=== PATIENT | female | born 1985 | race Caucasian/White ===

== ENCOUNTER 2022-02-12 08:01 | Outpatient (CLI) | payer BC, SELFPAY ==
--- OUTSIDE RECORDS SUMMARY | 2022-02-12 08:04 | XMS_ITS | Clinical Summary ---
:1985 External Reference #:#[id number] Author Organization [facility] [place] [address] Care Team Providers Name Role Phone Pcp, No Primary Care Provider Unavailable Allergies Active Allergy Reactions Severity Noted Date Comments Amoxicillin 12/26/2006 Cefaclor 12/26/2006 Escitalopram Anxiety 01/27/2010 Sulfa (Sulfonamide Antibiotics) 7 Medications Medication Sig Dispensed Refills Start Date End Date Status norgestimate-ethinyl Take 1 tablet by 1 Package 0 01/27/2010 Active estradiol mouth once daily. (TRI-SPRINTEC) 0.18/0.215/0.25 mg-35 mcg (28) tablet Biotin 10,000 mcg Take 1 capsule by 0 07/15/2011 Active capsuleIndications: mouth. Anxiety state, unspecified levonorgestrel-ethinyl Take 1 tablet by 1 Package 0 09/25/2012 Active estrad, 0.15-30 mouth once daily. mg-mcg, (ALTAVERA, 28,) 0.15-30 mg-mcg tablet busPIRone (BUSPAR) 10 Take 1 tablet by 30 tablet 11 09/25/2012 Active mg tabletIndications: mouth 3 times Anxiety state, daily if needed unspecified for Other (Specify). buPROPion (WELLBUTRIN Take 1 tablet by 0 09/25/2012 Active SR) 150 mg mouth 2 times Sustained-Release daily. Managed by tablet Dr Diaz Active Problems Problem Noted Date Anxiety state, unspecified 07/20/2011 Other specified viral warts 09/30/2010 Overview: Right index finger and right foot. 2010 Reaction, adjustment, with anxious, depressed mood Unspecified gastritis and gastroduodenitis without men tion of hemorrhage 07/08/2008 Overview: EGD 07/2008 gastritis Insomnia, unspecified 04/12/2007 Resolved Problems Problem Noted Date Resolved Date Intestinal infection due to Clostridium difficile 08/29/2008 07/15/2011 Immunizations Name Administration Dates Next Due AMB Influenza, IIV3 (Age >=3 02/24/2011 years)(Flu Clinic Only) DTP 03/31/1990, 09/17/1988, 03/25/1988, 1987 DTaP 01/05/1993 Hepatitis B (Adult) 11/05/2009, 03/05/2009, 12/12/2008 Human Papilloma Virus Vaccine 03/01/2012, 09/13/2011, 2011 Influenza,LAIV4 Live Intranasal 02/24/2010, 03/05/2009, 07/2008 (Flumist) MMR 08/25/1999, 03/31/1990 Oral Polio Vaccine 01/05/1993, 03/31/1990, 03/25/1988, 1987 Td (Age >=7 Years) 08/25/1999 Tdap 10/18/2008 Tuberculin (PPD) 11/05/2009, 12/27/2008, 12/12/2008, 10/18/2008 Family History Medical History Relation Name Comments Diabetes Father type I Diabetes Maternal Grandfather type 11 Diabetes Maternal Grandmother type 11 Cancer-breast Mother Psychiatric illness Mother depression Diabetes Paternal Grandfather type 1 Relation Name Status Comments Father (Age 40) killed in the line of duty Maternal Grandfather Maternal Grandmother Mother Paternal Grandfather Social History Tobacco Use Types Packs/Day Years Used Date Never Smoker Smokeless Tobacco: Never Used Tobacco Cessation: Counseling Given: Yes Alcohol Use Standard Drinks/Week Comments Yes 0 (1 standard drink = 0.6 oz pure alcoho l) occasionally Alcohol Habits Answer Date Recorded How often do you have a drink containing alcohol? Not asked How many drinks containing alcohol do you have on a Not aske d typical day when you are drinking? How often do you have six or more drinks on one occasion? No t asked Comment: occasionally 10/18/2008 Sex Assigned at Date Recorded Not on file Obstetrics History Last Filed Vital Signs Vital Sign Reading Time Taken Comments Blood Pressure 115/79 09/25/2012 4:46 PM CDT tower Pulse 79 09/25/2012 4:46 PM CDT Temperature 36.9 ??C (98.4 ??F) 09/25/2012 4:46 PM CDT Respiratory Rate - - Oxygen Saturation 100% 09/25/2012 4:46 PM CDT Inhaled Oxygen Concentration - - Weight 66.9 kg (147 lb 6.4 oz) 09/25/2012 4:46 PM CDT Height 167.6 cm (5' 6) 01/27/2010 9:05 AM CDT Body Mass Index 23.79 01/27/2010 9:05 AM CDT Plan of Treatment Health Maintenance Due Date Last Done Comments COVID-19 vaccine series (#1) 03/20/1988 Depression screening for age 12+ 1999 BMI (ht and wt on same day) for 09/17/2005 age 18+ Tetanus booster 10/18/2018 10/18/2008, 08/25/1999 Pap test for age 21-65 10/18/2020 10/18/2017, 10/18/2017, 06/19/2014, Additional history exists Influenza for age 9-49 01/07/2022 02/24/2011, 02/24/2010, 03/05/2009, Additional history exists Tdap Completed 10/18/2008 Hepatitis C screening for age Completed 02/24/2011, 2010 18-79 Results Not on filefrom Last 3 Months Insurance Payer Benefit Plan Subscriber ID Effective Dates Phone Address Type / Group [employer] [id number] 2010-Prese [phone] [address] [address] [address] [place] [id number] (Home) [place] [id number] [address] Personal/Family Self 1985 [address] (Home) [place] [address] [facility] [id number] [employer] ([place]) [place] [address] Care Teams Food And Nutrition Professor Relationship Specialty Start Date End Date Pcp, No PCP - General 06/07/13 .
--- OUTSIDE RECORDS SUMMARY | 2022-02-12 08:04 | XMS_ITS | Encounter Summary ---
:1985 Author Organization [facility] Address [address] [place] [address] Care Team Providers Name Role Phone No Ref-Primary, Physician Primary Care Provider [phone] Encounter Details Date Type Department Care Team Description 03/30/2019 Travel Social History Tobacco Use Types Packs/Day Years Used Date Never Assessed Sex Assigned at Date Recorded Not on file documented as of this encounter Plan of Treatment Not on filedocumented as of this encounter Visit Diagnoses Not on filedocumented in this encounter Care Teams Brewery Representative Relationship Specialty Start Date End Date No Ref-Primary, Physician PCP - General 03/30/19 documented as of this encounter
--- OUTSIDE RECORDS SUMMARY | 2022-02-12 08:04 | XMS_ITS | Encounter Summary ---
:1985 Author Organization [facility] Address [address] [place] [address] Care Team Providers Name Role Phone No Ref-Primary, Physician Primary Care Provider [phone] Reason for Visit Reason Comments New Patient Thyroid Problem Encounter Details Date Type Department Care Team Description [facility] [place] Dorina Anti-TPO antibodies present [address] [place] [id number] [phone] Social History Tobacco Use Types Packs/Day Years Used Date Never Smoker Smokeless Tobacco: Never Used Alcohol Use Standard Drinks/Week Comments Yes 0 (1 standard drink = 0.6 oz pure alcoho l) Sex Assigned at Date Recorded Not on file documented as of this encounter Last Filed Vital Signs Vital Sign Reading Time Taken Comments Blood Pressure 106/72 06/21/2019 2:58 PM FINISHING WIRE SAWYER Pulse 74 06/21/2019 2:58 PM FINISHING WIRE SAWYER Temperature 36.4 ??C (97.6 ??F) 06/21/2019 2:58 PM FINISHING WIRE SAWYER Respiratory Rate 16 06/21/2019 2:58 PM FINISHING WIRE SAWYER Oxygen Saturation 100% 06/21/2019 2:58 PM FINISHING WIRE SAWYER Inhaled Oxygen Concentration - - Weight 90.9 kg (200 lb 6.4 oz) 06/21/2019 2:58 PM FINISHING WIRE SAWYER Height 165.1 cm (5' 5) 06/21/2019 2:58 PM FINISHING WIRE SAWYER Body Mass Index 33.35 06/21/2019 2:58 PM FINISHING WIRE SAWYER documented in this encounter Patient Instructions Patient InstructionsDorina Moy MD - 06/21/2019 3:00 PM CST [facility] Dr Moy, Endocrinology Department [facility] [address] [facility] [address] Appointment [phone] Tuesday and Tuesday [facility] [place] [address] Appointment [phone] Tuesday and Labs today. Further work up based on that. SHING WIRE SAWYER documented in this encounter Progress Notes Dorina Moy MD - 06/21/2019 3:00 PM CST ENDOCRINOLOGY CLINIC NOTE: Name: Yvrose Padilla Self referral for thyroid concerns. HPI: Yvrose Padilla is a 33 year old female who presents for the evaluation of above. PCP is through [facility]. H/o anxiety and is on Cymbalta. Had thyroid issues since age 20. Had +TPO antibodies positive but TFT were normal so was not on medication. She reports that for a while her TSH was on the lower side and she was feeling really good Follow-up labs showed higher TSH and at that time she was feeling tired and fatigued. For last 3 months: Acute on chronic fatigue, tiredness and sleepiness. Also has brittle nails, dry skin and hair loss. H/o fluctuating thyroid labs. Not feeling the best. Feels like fingers are swelling. Palpitations: Not often Changes to hair or skin: Yes: + hair loss Diarrhea/Constipation:h/o constipation and takes probiotics Changes in menses: on IUD. Has 2 kids. No thyroid problems during . Dysphagia or Shortness of breath:No. Sometimes neck is tender. Tremors:No Heat or cold intolerance: + cold intolerance. History of Cloverleaf or Amiodarone use:No Head or neck surgery/radiation:No Family History of Thyroid Problems: sister, mother and m.aunt: hypothyroidism. PMH/PSH: Anxiety IUD S/p S/p cholecystectomy. Family Hx: Family History of Thyroid Problems: sister, mother and m.aunt: hypothyroidism. Social Hx: Social History Socioeconomic History ??? Marital status: Spouse name: Not on file ??? Number of children: Not on file ??? Years of education: Not on file ??? Highest education level: Not on file Occupational History ??? Not on file Social Needs ??? Financial resource strain: Not on file ??? Food insecurity: Worry: Not on file Inability: Not on file ??? Transportation needs: Medical: Not on file Non-medical: Not on file Tobacco Use ??? Smoking status: Never Smoker ??? Smokeless tobacco: Never Used Substance and Sexual Activity ??? Alcohol use: Yes ??? Drug use: Never ??? Sexual activity: Yes Partners: Male Lifestyle ??? Physical activity: Days per week: Not on file Minutes per session: Not on file ??? Stress: Not on file Relationships ??? Social connections: Talks on phone: Not on file Gets together: Not on file Attends scientology service: Not on file Active member of club or organization: Not on file Attends meetings of clubs or organizations: Not on file Relationship status: Not on file ??? Intimate partner violence: Fear of current or ex partner: Not on file Emotionally abused: Not on file Physically abused: Not on file Forced sexual activity: Not on file Other Topics Concern ??? Not on file Social History Narrative ??? Not on file MEDICATIONS: has a current medication list which includes the following prescription(s): duloxetine. ROS ROS: 10 point ROS neg other than the symptoms noted above in the HPI. Physical Exam VS: BP 106/72 (BP Location: Left arm, Patient Position: Chair, Cuff Size: Adult Large) Pulse 74 Temp 97.6 ??F (36.4 ??C) (Oral) Resp 16 Ht 1.651 m (5' 5) Wt 90.9 kg (200 lb 6.4 oz) LMP (LMP Unknown) SpO2 100% No BMI 33.35 kg/m?? GENERAL: AXOX3, NAD, well dressed, answering questions appropriately, appears stated age. HEENT: No exopthalmous, no proptosis, EOMI, no lig lag, no retraction NECK: Thyroid normal in size, non tender, no nodules were palpated. CV: RRR, no rubs, gallops, no murmurs LUNGS: CTAB, no wheezes, rales, or ronchi ABDOMEN: Regular bowel sounds eXTREMITIES: no edema, +pulses, no rashes, no lesions NEUROLOGY: CN grossly intact, no tremors MSK: grossly intact SKIN: no rashes, no lesions LABS: No recent data to review. Records from outside clinic requested. All pertinent notes, labs, and images personally reviewed by me. A/P Ms.Jillian Padilla is a 33 year old here for the evaluation of hypothyroidism: #1.Thyroid dysfunction: Strong family history of Roger and hypothyroidism Per her report she was diagnosed with Roger in past but was never started on medication as TFT were in normal range Clinically looks euthyroid Not planning at this time Has symptoms like chronic fatigue, dry nails has no reported above Plan: Discussed diagnosis, pathophysiology, management and treatment options of condition with pt. Repeat thyroid function test. We will also obtain vitamin D and hemoglobin levels for further evaluation of fatigue. Screen for Roger. Based on labs consider thyroid hormone replacement. Encouraged to continue work with psychiatrist and her primary care provider for further management of anxiety. Discussed s/s of hypothyroidism and hyperthyroidism to watch for. The patient indicates understanding of these issues and agrees with the plan. Standard treatment for hypothyroidism involves daily use of the synthetic thyroid hormone levothyroxine (Levothroid, Synthroid, others). The dosage of thyroxine should normally be that required to bring the serum TSH level to the low normal range, such as 0.3 - 1 uU/ml. This is typically achieved with1 ug L- T4/lb body weight/day, ranges from 75 - 125 ug/day in women, and 125 - 200 ug/day in men. Once thyroxine treatment is initiated, it is required indefinitely in most patients. Symptoms should improve one to two weeks after starting treatment. Treatment with levothyroxine is usually lifelong. Doseage may need to be adjusted based on body weight, medications, or . To determine the right dosage of levothyroxine initially we will repeat TSH and free T4 after two months. Excessive amounts of the hormone can cause side effects, such as: Increased appetite, insomnia, heart palpitations, and shakiness. Patients with CAD will be started on a lower dose. Levothyroxine causes virtually no side effects when used in the appropriate dose. In patients with childbearing age precaution should be taking regarding hypothyroidism. Hypothyroid woman are more likely to experience infertility, and they have an increase. Balance and portion, anemia, and gestational hypertension, placental abruption and hemorrhage. Certain medications, supplements and foods can affect the body???s ability to absorb levothyroxine. Medications include: Iron supplements, Cholestyramine and Calcium supplements. Follow-up: Based on labs. Dorina Moy MD Endocrinology [facility] CC: No Ref-Primary, Physician All questions were answered. The patient indicates understanding of the above issues and agrees withthe plan set forth. Addendum to above note and clinic visit: Labs reviewed. See result note/telephone encounter. SHING WIRE SAWYER documented in this encounter Plan of Treatment Not on filedocumented as of this encounter Procedures Procedure Name Priority Date/Time Associated Diagnosis Comme nts VITAMIN D DEFICIENCY Routine 06/21/2019 3:23 PM Fatigue, unspe cified Results for this SCREENING FINISHING WIRE SAWYER type procedure are i n the results section. TSH Routine 06/21/2019 3:23 PM Anti-TPO antibodies Re sults for this FINISHING WIRE SAWYER present procedure are i n the results section. THYROID PEROXIDASE Routine 06/21/2019 3:23 PM Anti-TPO antibod ies Results for this ANTIBODY FINISHING WIRE SAWYER present procedure are i n the results section. T4 FREE Routine 06/21/2019 3:23 PM Anti-TPO antibodies Re sults for this FINISHING WIRE SAWYER present procedure are i n the results section. HEMOGLOBIN Routine 06/21/2019 3:23 PM Fatigue, unspecified R esults for this FINISHING WIRE SAWYER type procedure are i n the results section. documented in this encounter Results Hemoglobin (06/21/2019 3:23 PM FINISHING WIRE SAWYER) athologist Signature Hemoglobin 13.4 11.7 - 15.7 06/21/2019 REMUS g/dL 3:45 PM FINISHING WIRE SAWYER [facility] Specimen Anatomical Collection Method Collection Time Receive d Time (Source) Location / / Volume Laterality Blood specimen 06/21/2019 3:23 PM 020 3:28 (specimen) FINISHING WIRE SAWYER PM FINISHING WIRE SAWYER Dorina Moy MD LAB - BLOOD ORDERABLES Performing Organization Address City/State/ZIP Code Phon e Number [facility] [address] [place], [place] [address] [address] Vitamin D Deficiency (06/21/2019 3:23 PM FINISHING WIRE SAWYER) athologist Signature Vitamin D 27 20 - 75 06/24/2019 [facility] Deficiency ug/L 10:17 AM FINISHING WIRE SAWYER [place] [facility] Comment: Season, race, dietary intake, and treatm ent affect the concentration of 42-tralswa-Ffrseml D. Values may decreas e during winter months and increase during summer months. Values 20-29 ug/L may indicate Vitamin D insufficiency and values <20 ug/L may indicate Vitamin D deficiency. Vitamin D determination is routinely per formed by an immunoassay specific for 25 hydroxyvitamin D3. ??If an individual is on vitamin D2 (ergocalciferol) supplementation, please specify 25 [place] vi tamin D2 and D3 level determination by LCMSMS test VITD23. Specimen Anatomical Collection Method Collection Time Receive d Time (Source) Location / / Volume Laterality Blood specimen 06/21/2019 3:23 PM 020 3:28 (specimen) FINISHING WIRE SAWYER PM FINISHING WIRE SAWYER Dorina Moy MD LAB - BLOOD ORDERABLES Performing Organization Address City/State/ZIP Code Phon e Number [address] Thyroid peroxidase antibody (06/21/2019 3:23 PM FINISHING WIRE SAWYER) athologist Signature Thyroid 29 <35 IU/mL 06/25/2019 [facility] Peroxidase 2:28 PM FINISHING WIRE SAWYER [facility] Specimen Anatomical Collection Method Collection Time Receive d Time (Source) Location / / Volume Laterality Blood specimen 06/21/2019 3:23 PM 020 3:28 (specimen) FINISHING WIRE SAWYER PM FINISHING WIRE SAWYER Dorina Moy MD LAB - BLOOD ORDERABLES Performing Organization Address City/State/ZIP Code Phon e Number [address] T4 free (06/21/2019 3:23 PM FINISHING WIRE SAWYER) athologist Signature T4 Free 0.89 0.76 - 1.46 06/22/2019 [facility] ng/dL 1:02 PM FINISHING WIRE SAWYER [facility] Specimen Anatomical Collection Method Collection Time Receive d Time (Source) Location / / Volume Laterality Blood specimen 06/21/2019 3:23 PM 020 3:28 (specimen) FINISHING WIRE SAWYER PM FINISHING WIRE SAWYER Dorina Moy MD LAB - BLOOD ORDERABLES Performing Organization Address City/[facility]/ZIP Code Phon e Number [facility] [address], [place] [address] TSH (06/21/2019 3:23 PM FINISHING WIRE SAWYER) P athologist Signature TSH 2.66 0.40 - 4.00 06/22/2019 [facility] mU/L 1:08 PM FINISHING WIRE SAWYER [facility] Specimen Anatomical Collection Method Collection Time Receive d Time (Source) Location / / Volume Laterality Blood specimen 06/21/2019 3:23 PM 020 3:28 (specimen) FINISHING WIRE SAWYER PM FINISHING WIRE SAWYER Dorina Moy MD LAB - BLOOD ORDERABLES Performing Organization Address City/[facility]/ZIP Code Phon e Number [facility] [address] [place] [address] documented in this encounter Visit Diagnoses Diagnosis Fatigue, unspecified type - Primary Anti-TPO antibodies present Other and unspecified nonspecific immuno logical findings documented in this encounter Care Teams Quantitative Strategy Analyst Relationship Specialty Start Date End Date No Ref-Primary, Physician PCP - General 03/30/19 documented as of this encounter
--- OUTSIDE RECORDS SUMMARY | 2022-02-12 08:04 | XMS_ITS | Encounter Summary ---
:1985 Author Organization [facility] Address [address] [place] [address] Care Team Providers Name Role Phone No Ref-Primary, Physician Primary Care Provider [phone] Encounter Details Date Type Department Care Team Description 06/21/2019 Travel Social History Tobacco Use Types Packs/Day [...] on filedocumented in this encounter Care Teams Eyedotter Relationship Specialty Start Date End Date No Ref-Primary, Physician PCP - General 03/30/19 documented as of this encounter
--- NOTE | 2022-02-12 08:15 | CRLHL7_ITS ---
For Patients: As a result of the Cures Act, medical imaging exams and procedure reports are released immediately into your electronic medical record. You may view this report before your referring provider. If you have questions, please contact your health care provider. INDICATION: First trimester scan, establish dates. TECHNIQUE: Real-time forrester-scale imaging of the pelvis was performed. FINDINGS: Sonographic imaging demonstrates a single living intrauterine gestation. The embryo demonstrates a regular cardiac rate measuring 163 beats per minute. The embryo`s crown-rump length measurement of 1.4 cm corresponds to a gestational age of 7 weeks 5 days with a sonographic due date of 09/26/2021. There is a normal-appearing yolk sac ovaries are unremarkable. IMPRESSION: Normal first trimester OB ultrasound exam. Gestational age calculated at 7 weeks 5 days with a sonographic due date of 09/26/2021. Dictated by Aimee Cisneros MD @ 02/12/2022 9:16:56 AM (Electronically Signed)
== END 2022-02-12 08:02 | disposition home or self-care (01) ==
LOC: US 08:02
PROVIDERS: PCP Family Medicine; Visit Provider Registered Nurse
DX: Z34.91 Encounter for supervision of normal pregnancy, unspecified, first trimester (principal); Z3A.01 Less than 8 weeks gestation of pregnancy
CPT/HCPCS: 76817; 82565; 82570; 84156; 84443; 84450; 84460; 84520; 86592; 86703; 86762; 86787; 86803; 86850; 86900; 86901; 87086; 87340; 87491; 87591

== ENCOUNTER 2022-04-21 11:04 | Outpatient (CLI) | payer BC, SELFPAY ==
--- OUTSIDE RECORDS SUMMARY | 2022-04-21 07:44 | XMS_ITS | Clinical Summary ---
:1985 Author Organization [facility] Address [address] [place] [address] Care Team Providers Name Role Phone No Ref-Primary, Physician Primary Care Provider [phone] Allergies Active Allergy Reactions Severity Noted Date Comments Amoxicillin 12/26/2006 Cefaclor 12/26/2006 Sulfa Drugs 12/26/2006 Medications Medication Sig Dispensed Refills Start Date End Date Status DULoxetine (CYMBALTA) 20 MG capsule 0 05/10 Active Active Problems Problem Noted Date Fatigue, unspecified type 06/21/2019 Anti-TPO antibodies present 06/21/2019 Immunizations Name Administration Dates Next Due Influenza (intradermal) 02/20/2017 TDAP Vaccine (Adacel) 06/25/2016 Social History Tobacco Use Types Packs/Day Years Used Date Smoking Tobacco: Never Smokeless Tobacco: Never Alcohol Use Standard Drinks/Week Comments Yes 0 (1 standard drink = 0.6 oz pure alcoho l) Sex Assigned at Date Recorded Not on file Last Filed Vital Signs Vital Sign Reading Time Taken Comments Blood Pressure 106/72 06/21/2019 2:58 PM CASH ACCOUNTANT Pulse 74 06/21/2019 2:58 PM CASH ACCOUNTANT Temperature 36.4 ??C (97.6 ??F) 06/21/2019 2:58 PM CASH ACCOUNTANT Respiratory Rate 16 06/21/2019 2:58 PM CASH ACCOUNTANT Oxygen Saturation 100% 06/21/2019 2:58 PM CASH ACCOUNTANT Inhaled Oxygen Concentration - - Weight 90.9 kg (200 lb 6.4 oz) 06/21/2019 2:58 PM CASH ACCOUNTANT Height 165.1 cm (5' 5) 06/21/2019 2:58 PM CASH ACCOUNTANT Body Mass Index 33.35 06/21/2019 2:58 PM CASH ACCOUNTANT Plan of Treatment Health Maintenance Due Date Last Done Comments ADVANCE CARE PLANNING 1985 ANNUAL REVIEW OF HM ORDERS 1985 YEARLY PREVENTIVE VISIT 1985 COVID-19 Vaccine (#1) 03/20/1988 HIV SCREENING 09/17/2002 HEPATITIS C SCREENING 09/17/2005 PHQ-2 (once per calendar 05/09/2021 year) INFLUENZA VACCINE (#1) 2022 02/20/2017, 02/24/2011, 02/24/2010, Additional history exists HPV TEST 10/18/2022 10/18/2017 PAP 10/18/2022 10/18/2017 DTAP/TDAP/TD IMMUNIZATION 06/25/2026 06/25/2016, 01/05/1993 (3 - Td or Tdap) HEPATITIS B IMMUNIZATION Completed 11/05/2009, 03/05/2009, 12/12/2008 IPV IMMUNIZATION Aged Out No longer eligi ble based on patient 's age to complete this topic MENINGITIS IMMUNIZATION Aged Out No longe r eligible based on patient 's age to complete this topic Pneumococcal Vaccine: Aged Out No longer eligible Pediatrics (0 to 5 Years) based on patient's age and At-Risk Patients (6 to to co mplete this topic 64 Years) Insurance Payer Benefit Plan / Subscriber ID Effective Dates Phone Addre ss Type Group [place] [id number] 2016-Catia [phone] [address] [address] Indemnity t 0 [place] [address] Care Teams Operations Inspector Relationship Specialty Start Date End Date No Ref-Primary, Physician PCP - General 03/30/19
--- OUTSIDE RECORDS SUMMARY | 2022-04-21 07:44 | XMS_ITS | Encounter Summary ---
:1985 Author Organization [facility] Address [address] [place] [address] Care Team Providers Name Role Phone No Ref-Primary, Physician Primary Care Provider [phone] Reason for Visit Reason Comments New Patient Thyroid Problem Encounter Details Date Type Department Care Team Description 06[facility]21[facility]2019 [facility] Clinic Bronxsara Cam MD Anti-TPO antibodies present [address] [facility] [address] [place] [phone] Social History Tobacco Use Types Packs/Day Years Used Date Smoking Tobacco: Never Smokeless Tobacco: Never Alcohol Use Standard Drinks/Week Comments Yes 0 (1 standard drink = 0.6 oz pure alcoho l) Sex Assigned at Date Recorded Not on file documented as of this encounter Last Filed Vital Signs Vital Sign Reading Time Taken Comments Blood Pressure 106/72 06/21/2019 2:58 PM SHELL WORKER Pulse 74 06/21/2019 2:58 PM SHELL WORKER Temperature 36.4 ??C (97.6 ??F) 06/21/2019 2:58 PM SHELL WORKER Respiratory Rate 16 06/21/2019 2:58 PM SHELL WORKER Oxygen Saturation 100% 06/21/2019 2:58 PM SHELL WORKER Inhaled Oxygen Concentration - - Weight 90.9 kg (200 lb 6.4 oz) 06/21/2019 2:58 PM SHELL WORKER Height 165.1 cm (5' 5) 06/21/2019 2:58 PM SHELL WORKER Body Mass Index 33.35 06/21/2019 2:58 PM SHELL WORKER documented in this encounter Patient Instructions Patient InstructionsDorina Moy MD - 06/21/2019 3:00 PM CST [facility] [address] Moy, Endocrinology Department [facility] [address] [facility] [address] Appointment [phone] Tuesday and Tuesday [place] [address] [address] [facility] [place] [address] Appointment [phone] Tuesday and Labs today. Further work up based on that. L WORKER documented in this encounter Progress Notes Dorina Moy MD - 06/21/2019 3:00 PM CST ENDOCRINOLOGY CLINIC NOTE: Name: Yvrose Padilla Self referral for thyroid concerns. HPI: Yvrose Padilla is a 33 year old female who presents for the evaluation of above. PCP is through [facility]. H/o anxiety and is on Cymbalta. Had [...] cold intolerance: + cold intolerance. History of [place] or Amiodarone use:No Head or neck surgery/radiation:No [...] file Gets together: Not on file Attends methodist service: Not on file Active member of [...] Based on labs. Dorina Moy MD Endocrinology [facility] CC: No Ref-Primary, Physician All questions were answered. The patient indicates understanding of the above issues and agrees withthe plan set forth. Addendum to above note and clinic visit: Labs reviewed. See result note/telephone encounter. L WORKER documented in this encounter Plan of Treatment Not on filedocumented as of this encounter Procedures Procedure Name Priority Date/Time Associated Diagnosis Comme nts VITAMIN D DEFICIENCY Routine 06/21/2019 3:23 PM Fatigue, unspe cified Results for this SCREENING SHELL WORKER type procedure are i n the results section. TSH Routine 06/21/2019 3:23 PM Anti-TPO antibodies Re sults for this SHELL WORKER present procedure are i n the results section. THYROID PEROXIDASE Routine 06/21/2019 3:23 PM Anti-TPO antibod ies Results for this ANTIBODY SHELL WORKER present procedure are i n the results section. T4 FREE Routine 06/21/2019 3:23 PM Anti-TPO antibodies Re sults for this SHELL WORKER present procedure are i n the results section. HEMOGLOBIN Routine 06/21/2019 3:23 PM Fatigue, unspecified R esults for this SHELL WORKER type procedure are i n the results section. documented in this encounter Results Hemoglobin (06/21/2019 3:23 PM SHELL WORKER) P athologist Signature Hemoglobin 13.4 11.7 - 15.7 06/21/2019 [place] g/dL 3:45 PM SHELL WORKER [facility] Specimen Anatomical Collection Method Collection Time Receive d Time (Source) Location / / Volume Laterality Blood specimen 06/21/2019 3:23 PM 020 3:28 (specimen) SHELL WORKER PM SHELL WORKER Dorina Moy MD LAB - BLOOD ORDERABLES Performing Organization Address City/State/ZIP Code Phon e Number [facility] [address] [place], [place] [address] [address] Vitamin D Deficiency (06/21/2019 3:23 PM SHELL WORKER) athologist Signature Vitamin D 27 20 - 75 06/24/2019 [facility] Deficiency ug/L 10:17 AM SHELL WORKER IN MEDICAL [facility] Comment: Season, race, dietary intake, and treatm ent affect the concentration of 90-cjpjzlo-Zyegkmn D. Values may decreas e during winter [...] specimen 06/21/2019 3:23 PM 020 3:28 (specimen) SHELL WORKER PM SHELL WORKER Dorina Moy MD LAB - BLOOD ORDERABLES Performing Organization Address City/[facility]/ZIP Code Phon e Number [address] Thyroid peroxidase antibody (06/21/2019 3:23 PM SHELL WORKER) athologist Signature Thyroid 29 <35 IU/mL 06/25/2019 [facility] Peroxidase 2:28 PM SHELL WORKER [facility] Antibody [facility] Specimen Anatomical Collection Method Collection Time Receive d Time (Source) Location / / Volume Laterality Blood specimen 06/21/2019 3:23 PM 020 3:28 (specimen) SHELL WORKER PM SHELL WORKER Dorina Moy MD LAB - BLOOD ORDERABLES Performing Organization Address City/State/ZIP Code Phon e Number [address] T4 free (06/21/2019 3:23 PM SHELL WORKER) athologist Signature T4 Free 0.89 0.76 - 1.46 06/22/2019 [facility] ng/dL 1:[address] [facility] Specimen Anatomical Collection Method Collection Time Receive d Time (Source) Location / / Volume Laterality Blood specimen 06/21/2019 3:23 PM 020 3:28 (specimen) SHELL WORKER PM SHELL WORKER Dorina Moy MD LAB - BLOOD ORDERABLES Performing Organization Address City/[facility]/ZIP Code Phon e Number [facility] [address] [place] [address] TSH (06/21/2019 3:23 PM SHELL WORKER) P athologist Signature TSH 2.66 0.40 - 4.00 06/22/2019 [facility] mU/L 1:[address] [facility] Specimen Anatomical Collection Method Collection Time Receive d Time (Source) Location / / Volume Laterality Blood specimen 06/21/2019 3:23 PM 020 3:28 (specimen) SHELL WORKER PM SHELL WORKER Dorina Moy MD LAB - BLOOD ORDERABLES Performing Organization Address City/[facility]/ZIP Code Phon e Number [facility] [address], [place] [address] documented in this encounter Visit Diagnoses Diagnosis Fatigue, unspecified type - Primary Anti-TPO antibodies present Other and unspecified nonspecific immuno logical findings documented in this encounter Care Teams Scowman Relationship Specialty Start Date End Date No Ref-Primary, Physician PCP - General 03/30/19 documented as of this encounter
--- OUTSIDE RECORDS SUMMARY | 2022-04-21 07:44 | XMS_ITS | Clinical Summary ---
:1985 External Reference #:#[id number] Author Organization [employer] [facility] [place] [address] Care Team Providers Name Role Phone Pcp, [...] 09/13/2011, 2011 Influenza,LAIV4 Live Intranasal 02/24/2010, 03/05/2009, 0207/2008 (Flumist) MMR 08/25/1999, 03/31/1990 Oral Polio Vaccine [...] Date Smoking Tobacco: Never Smokeless Tobacco: Never Tobacco Cessation: Counseling Given: Yes Alcohol Use Standard Drinks/Week Comments Yes 0 (1 standard drink = 0.6 oz pure alcoho l) occasionally Sex Assigned at Date Recorded Not on [...] 03/05/2009, Additional history exists Tdap Completed 10/18/2008 HIV for age 15-65 Completed 02/24/2011, 07/28/2010 Hepatitis C screening for age Completed 02/24/2011, 2010 18-79 Results Not on filefrom Last 3 Months Insurance Payer Benefit Plan Subscriber ID Effective Dates Phone Address Type / Group [employer] [id number] 2010-Prese [phone] [address] [address] [address] [place] [address] (Home) [place] [id number] Yvrose BOURNE Personal/Family Self 1985 [address] (Home) [place] [address] [facility] Employer [phone] [place] (Work) [facility] [place] [address] Care Teams Director Of Consumer Marketing Relationship Specialty Start Date End Date Pcp, No PCP - General 06/07/13 .
--- OUTSIDE RECORDS SUMMARY | 2022-04-21 07:44 | XMS_ITS | Encounter Summary ---
:1985 Author Organization [facility] Address [address] [place] [address] Care Team Providers Name Role Phone No Ref-Primary, Physician Primary Care Provider [phone] Encounter Details Date Type Department Care Team Description 03/30/2019 Travel Social History Tobacco Use Types Packs/Day Years Used Date Smoking Tobacco: Never Assessed Sex Assigned at Date Recorded Not on file documented as of this encounter Plan of Treatment Not on filedocumented as of this encounter Visit Diagnoses Not on filedocumented in this encounter Care Teams Die Barber Relationship Specialty Start Date End Date No Ref-Primary, Physician PCP - General 03/30/19 documented as of this encounter
--- OUTSIDE RECORDS SUMMARY | 2022-04-21 07:44 | XMS_ITS | Encounter Summary ---
:1985 Author Organization [facility] Address [address] [place] [address] Care Team Providers Name Role Phone No Ref-Primary, Physician Primary Care Provider [phone] Encounter Details Date Type Department Care [...] on filedocumented in this encounter Care Teams County Manager Relationship Specialty Start Date End Date No Ref-Primary, Physician PCP - General 03/30/19 documented as of this encounter
== END 2022-04-21 11:05 | disposition home or self-care (01) ==
PROVIDERS: PCP Family Medicine; Visit Provider Advanced Practice Midwife
DX: N39.0 Urinary tract infection, site not specified (principal)
CPT/HCPCS: 87086

== ENCOUNTER 2022-05-05 12:29 | Outpatient (CLI) | payer BC, SELFPAY | END 2022-05-05 12:30 | disposition home or self-care (01) | LOC: US 12:29 | PROVIDERS: PCP Family Medicine; Visit Provider Pediatrics Neonatal-Perinatal Medicine | DX: O09.522 Supervision of elderly multigravida, second trimester (principal); Z3A.19 19 weeks gestation of pregnancy | CPT/HCPCS: 76811 ==

== ENCOUNTER 2022-07-02 08:47 | Outpatient (CLI) | payer BC, SELFPAY ==
[2022-07-04 07:47] LABS: Rapid Plasma Reagin (RPR) Non Reactive (Non Reactive)
== END 2022-07-02 08:48 | disposition home or self-care (01) ==
LOC: NFLDREF 08:47
PROVIDERS: PCP Family Medicine; Visit Provider Obstetrics & Gynecology
DX: O99.280 Endocrine, nutritional and metabolic diseases complicating pregnancy, unspecified trimester (principal); E03.9 Hypothyroidism, unspecified; Z3A.27 27 weeks gestation of pregnancy
CPT/HCPCS: 84439; 84443; 86592; 86850

== ENCOUNTER 2022-07-16 13:40 | Outpatient (CLI) | payer BC, SELFPAY | END 2022-07-16 13:41 | disposition home or self-care (01) | LOC: NFLDREF 13:40 | PROVIDERS: PCP Family Medicine; Visit Provider Physician Assistant | DX: O26.893 Other specified pregnancy related conditions, third trimester (principal); Z67.91 Unspecified blood type, Rh negative; Z3A.29 29 weeks gestation of pregnancy | CPT/HCPCS: 85461; J2791 ==

== ENCOUNTER 2022-08-27 13:54 | Outpatient (CLI) | payer BC, SELFPAY ==
--- NOTE | 2022-08-27 14:00 | CRLHL7_ITS ---
For Patients: As a result of the Cures Act, medical imaging exams and procedure reports are released immediately into your electronic medical record. You may view this report before your referring provider. If you have questions, please contact your health care provider. OBSTETRICAL ULTRASOUND LIMITED, 08/27/2022 INDICATION: OB growth. , follow-up right clubfoot. [place] by LMP: 09/26/2022 Gestational age: 35 weeks 5 days TECHNIQUE: Transabdominal obstetrical ultrasound. COMPARISON: 05/05/2022 FINDINGS: Gestation: Single Cervix: Not visualized positioning: Vertex Amniotic fluid: 9.4 cm SDP MANN: 14.85 cm Placenta position: Anterior DOPPLERS: heart rate: 131 bpm BIOMETRY: BPD: 9.0 cm, 36 weeks, 3 days, 76% HC: 32.7 cm, 37 weeks, 0 days, 52% AC: 32.5 cm, 36 weeks, 3 days, 77% FL: 6.9 cm, 36 weeks, 2 days, 31% FL/AC Ratio: 21% HC/AC ratio: 1.0 EFW: 2865 grams, 6 lbs. 5 oz. age by this ultrasound: 32 weeks 2 days [place] by this US: 09/22/2022 Percentile by INDIA: 63% Comment: The images provided of the right foot do not clearly demonstrate a clubfoot; however, these images are suboptimal. IMPRESSION: Single live intrauterine gestation. A right clubfoot is not clearly identified; however, the two images of the right foot are suboptimal. AIMEE CISNEROS M.D. Diagnostic/Breast Radiologist [email or web address] Transcribed: 12:[address]/Dictated by: Aimee Cisneros MD @ 08/30/2022 11:13:00 AM (Electronically Signed)
== END 2022-08-27 13:55 | disposition home or self-care (01) ==
LOC: US 13:55
PROVIDERS: PCP Family Medicine; Visit Provider Registered Nurse
DX: O34.219 Maternal care for unspecified type scar from previous cesarean delivery (principal); Z3A.35 35 weeks gestation of pregnancy
CPT/HCPCS: 76816; 84443; 87081; 87653

== ENCOUNTER 2022-09-03 10:43 | Outpatient (CLI) | payer BC, SELFPAY | END 2022-09-03 10:44 | disposition home or self-care (01) | LOC: RAD 10:44 | PROVIDERS: PCP Family Medicine; Visit Provider Internal Medicine | DX: R00.2 Palpitations (principal) | CPT/HCPCS: 93306 ==

== ENCOUNTER 2022-11-05 09:44 | Outpatient (CLI) | payer BC, SELFPAY | END 2022-11-05 09:45 | disposition home or self-care (01) | LOC: NFLDREF 11-06 09:42 | PROVIDERS: PCP Family Medicine; Referring Provider Family Medicine; Visit Provider Registered Nurse | DX: E03.9 Hypothyroidism, unspecified (principal); Z39.2 Encounter for routine postpartum follow-up | CPT/HCPCS: 84439; 84443 ==

== ENCOUNTER 2023-03-18 15:09 | Outpatient (CLI) | payer BC, SELFPAY | END 2023-03-18 15:10 | disposition home or self-care (01) | LOC: NFLDREF 03-22 21:39 | PROVIDERS: PCP Family Medicine; Referring Provider Family Medicine; Visit Provider Registered Nurse | DX: E03.9 Hypothyroidism, unspecified (principal); O99.280 Endocrine, nutritional and metabolic diseases complicating pregnancy, unspecified trimester | CPT/HCPCS: 84443 ==

== ENCOUNTER 2023-07-08 08:17 | Outpatient (CLI) | payer BC, SELFPAY | END 2023-07-08 08:18 | disposition home or self-care (01) | LOC: NFLDREF 08:19 | PROVIDERS: PCP Family Medicine; Visit Provider Registered Nurse | DX: E03.9 Hypothyroidism, unspecified (principal) | CPT/HCPCS: 84443 ==

== ENCOUNTER 2024-03-16 07:51 | Outpatient (CLI) | payer BC, SELFPAY ==
--- OUTSIDE RECORDS SUMMARY | 2024-03-17 19:40 | XMS_ITS | Referral Summary ---
Author Organization [facility] Address [address] [place] [address] Care Team Providers Care Junior Accountant Bookkeeper Name Role Phone No Ref-Primary, Physician Primary Care Provider Allergies Active Allergy Reactions Criticality Noted Date Comments Amoxicillin 12/26/2006 Cefaclor 12/26/2006 Sulfa Antibiotics 12/26/2006 Medications DULoxetine (CYMBALTA) 20 MG capsule 05/31/2019 Active Active Problems Problem Noted Date Diagnosed Date Fatigue, unspecified type 06/21/2019 Anti-TPO antibodies present 06/21/2019 Immunizations Name Administration Dates Next Due Influenza (intradermal) 02/20/2017 TDAP Vaccine (Adacel) 06/25/2016 Social History Tobacco Use Types Packs/Day Years Used Date Smoking Tobacco: Never Smokeless Tobacco: Never Alcohol Use Standard Drinks/Week Comments Yes 0 (1 standard drink = 0.6 oz pur e alcohol) Comments No Sex and Gender Information Value Date Recorded Sex Assigned at Not on file Legal Sex Female 11:57 AM PRODUCTION RECORDER Gender Identity Not on file Sexual Orientation Not on file Last Filed Vital Signs Vital Sign Reading Time Taken Comments Blood Pressure 106/72 06/21/2019 2:58 PM PRODUCTION RECORDER Pulse 74 06/21/2019 2:58 PM PRODUCTION RECORDER Temperature 36.4 ??C (97.6 ??F) 06/21/2019 2:58 PM CS T Respiratory Rate 16 06/21/2019 2:58 PM PRODUCTION RECORDER Oxygen Saturation 100% 06/21/2019 2:58 PM PRODUCTION RECORDER Inhaled Oxygen Concentration - - Weight 90.9 kg (200 lb 6.4 oz) 06/21/2019 2:58 P M PRODUCTION RECORDER Height 165.1 cm (5' 5) 06/21/2019 2:58 PM PRODUCTION RECORDER Body Mass Index 33.35 06/21/2019 2:58 PM PRODUCTION RECORDER Plan of Treatment Not on [place] [address] Care Teams Junior Accountant Bookkeeper Relationship Specialty Start Date End Date No Ref-Primary, Physician PCP - General 03/30/19
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
--- OUTSIDE RECORDS SUMMARY | 2024-03-17 19:40 | XMS_ITS | Clinical Summary ---
Author Organization [facility] Address [address] [place] [address] Care Team Providers Care Reduction Plant Supervisor Name Role Phone No Ref-Primary, Physician Primary [...] on file Legal Sex Female 11:57 AM DEMURRAGE AGENT Gender Identity Not on file Sexual Orientation Not on file Last Filed Vital Signs Vital Sign Reading Time Taken Comments Blood Pressure 106/72 06/21/2019 2:58 PM DEMURRAGE AGENT Pulse 74 06/21/2019 2:58 PM DEMURRAGE AGENT Temperature 36.4 ??C (97.6 ??F) 06/21/2019 2:58 PM CS T Respiratory Rate 16 06/21/2019 2:58 PM DEMURRAGE AGENT Oxygen Saturation 100% 06/21/2019 2:58 PM DEMURRAGE AGENT Inhaled Oxygen Concentration - - Weight 90.9 kg (200 lb 6.4 oz) 06/21/2019 2:58 PM DEMURRAGE AGENT Height 165.1 cm (5' 5) 06/21/2019 2:58 PM DEMURRAGE AGENT Body Mass Index 33.35 06/21/2019 2:58 PM DEMURRAGE AGENT Plan of Treatment Not on file Insurance [place] Care Teams Reduction Plant Supervisor Relationship Specialty Start Date End Date No Ref-Primary, Physician PCP - General 03/30/19
== END 2024-03-16 07:52 | disposition home or self-care (01) ==
LOC: NFLDREF 03-17 19:39
PROVIDERS: PCP Family Medicine; Referring Provider Family Medicine; Visit Provider Physician Assistant
DX: E03.9 Hypothyroidism, unspecified (principal); Z13.6 Encounter for screening for cardiovascular disorders
CPT/HCPCS: 80061; 84443

== ENCOUNTER 2024-08-07 16:34 | Outpatient (CLI) | payer OTHER, SELFPAY ==
--- NOTE | 2024-08-07 16:40 | CRLHL7_ITS ---
For Patients: As a result of the Century Cures Act, medical imaging exams and procedure reports are released immediately into your electronic medical record. You may view this report before your referring provider. If you have questions, please contact your health care provider. BILATERAL SCREENING MAMMOGRAM WITH COMPUTER-AIDED DETECTION AND TOMOSYNTHESIS TECHNIQUE: CC and MLO views were obtained. These mammographic images have been obtained using full-field digital technique. These mammographic images were interpreted with the benefit of computer-aided detection. Breast Tomosynthesis was used in this interpretation. COMPARISON FILM: Baseline. FINDINGS: There are scattered areas of fibroglandular density. IMPRESSION: There is no radiographic evidence for malignancy. ASSESSMENT: BI-RADS Category 1: Negative RECOMMENDATION: Annual mammogram beginning at age 40. A lay language report of this examination will be provided to the patient. Shine Burnett M.D. Diagnostic Radiologist [email or web address] SP/Dictated by: Shine Burnett MD @ 08/08/2024 12:05:00 PM (Electronically Signed)
== END 2024-08-07 16:35 | disposition home or self-care (01) ==
LOC: MAMMO 16:36
PROVIDERS: PCP Family Medicine; Visit Provider Physician Assistant
DX: Z12.31 Encounter for screening mammogram for malignant neoplasm of breast (principal); Z80.3 Family history of malignant neoplasm of breast
CPT/HCPCS: 77063; 77067

== ENCOUNTER 2024-09-03 14:03 | Emergency (ER) | payer OTHER, SELFPAY ==
[2024-09-03 14:06] VITALS: BP 118/87; PULSE 117; RESP 18; TEMP 36.5; O2SAT 99; BMI 31.6
--- OUTSIDE RECORDS SUMMARY | 2024-09-03 14:09 | XMS_ITS | Clinical Summary ---
Author Organization [facility] [facility] Address [address] [place] [address] Care Team Providers Care High School Coach Name Role Phone Pcp, No Primary Care Provider Unavailabl e Allergies Active Allergy Reactions Criticality Noted Date Comments Amoxicillin 12/26/2006 Cefaclor 12/26/2006 Escitalopram Anxiety 01/27/2010 Sulfa (Sulfonamide Antibiotics) 12/08 Medications norgestimate-eth inyl estradiol (TRI-SPRINTEC) 0.18/0.215/0.25 mg-35 mcg (28) tablet Take 1 tablet by mouth once daily. 1 Package PRN 01/27/2010 Active Biotin 10,000 mcg capsuleIndicatio ns:Anxiety state, unspecified Take 1 capsule by mouth. 0 07/15/2011 Active levonorgestrel-e thinyl estrad, 0.15-30 mg-mcg, (ALTAVERA, 28,) 0.15-30 mg-mcg tablet Take 1 tablet by mouth once daily. 1 Package 0 09/25/2012 Active busPIRone (BUSPAR) 10 mg tabletIndication s:Anxiety state, unspecified Take 1 tablet by mouth 3 times daily if needed for Other (Specify). 30 tablet 11 09/25/2012 Active buPROPion (WELLBUTRIN SR) 150 mg Sustained-Releas e tablet Take 1 tablet by mouth 2 [...] due to Clostridium difficile 08/29/2008 07/15/2011 Immunizations Immunization Administration Dates Next Due AMB Influenza, IIV3 (Age >=3 years)(Flu Clinic Only) 02/24/2011 DTP 03/31/1990, 9,03/25/1988,1987 DTaP 01/05/1993 Hepatitis B (Adult) 11/05/2009,03/05/2009,2008 Human Papilloma Virus Vaccine 03/01/2012, 012,07/15/2011 Influenza,LAIV4 Live Intrana jagdish (Flumist) 02/24/2010,03/05/2009,06/11/2008 MMR 08/25/1999,03/31/1990 Oral Polio Vaccine 01/05/1993, 0,03/25/1988,1987 Td (Age >=7 Years) 08/25/1999 Tdap 10/18/2008 Tuberculin (PPD) 11/05/2009, 9,12/12/2008,2008 Family History Medical History Relation Name Comments [...] and Fami ly Not on file 08/20/2022 Comments No Sex and Gender Information Value Date Recorded Sex Assigned at Not on file Legal Sex Female 5:26 AM TRAVEL OT Gender Identity Not on file Sexual Orientation Not on file 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 on file Not on file Obstetrics History Last Filed Vital Signs Vital Sign Reading Time Taken Comments Blood Pressure 115/79 09/25/2012 4:46 PM CDT tow er Pulse 79 09/25/2012 4:46 PM CDT Temperature 36.9 C (98.4 F) 09/25/2012 4:46 PM CDT Respiratory Rate - [...] booster 10/18/2018 10/18/2008, 08/25/1999 COVID-19 vaccine series ( season) 2024 Influenza Vaccine (Season Ended) 2025 02/24/2011, 02/24/2010, 03/05/2009, Additional history exists Pap test for age 21-65 11/05/2025 , 11/05/2022, 10/18/2017, Additional history exists Tdap Completed 10/18/2008 HIV for age 15-65 Completed 02/24/2011, 07/28/2010 Hepatitis C screening for age 18-79 Completed 02/24/2011, 07/28/2010 Pneumococcal series for age 6-49 Aged Out No longer eligible based on [...] 16 Negative Negative 11/11/2022 5:17 PM CDT [facility] TYPE 18 Negative Negative 11/11/2022 5:17 PM CDT [facility] OTHER HIGH RISK TYPES Negative Negative 11/11/2022 5:17 PM CDT [facility] Other (Cervical) 11/05/2022 10:20 AM CDT 11/08/2022 12:31 PM CDT Narrative [facility] - 11/11/2022 5:17 PM CDT HPV types 16, 18, 31, 33, 35, 39, 45, 51, 52, 56, 58, 59, 66 and 68 DNA were undetectable or below the pre-set threshold. Methodology: Rhoda Lora 4800 HPV Test us Bianca Vázquez LABORER LABORATORY MICROBIOLOGY Final Res ult [facility] [address] [place] [address], * ANTI HCV (02/24/2011 10:27 AM CDT) ANTI HCV Non-reacti ve [facility] Blood specimen (specimen) BLOOD SPECIMEN / Unknown 02/24/2011 10:27 AM CDT 02/24/2011 10:21 AM CDT us Hiral Harrison PA SEND OUTS Final Resu lt [facility] [place]IP [address] [address] [place] [address] * ANTI HIV 1/2 (02/24/2011 10:27 AM CDT) ANTI HIV 1/2 Non-reacti ve [facility] Blood specimen (specimen) BLOOD SPECIMEN / Unknown 02/24/2011 10:27 AM CDT 02/24/2011 10:21 AM CDT us Hiral ALLEN SEND OUTS Final Resu lt [facility] INTERNAL ZIP [address] [address] from Last 3 Months or Most Recently Relevant to Health Maintenance Insurance [facility] [employer] Care Teams High School Coach Relationship Specialty Start Date End Date Pcp, No . PCP - General 06/07/13
--- OUTSIDE RECORDS SUMMARY | 2024-09-03 14:09 | XMS_ITS | Clinical Summary ---
Author Organization [facility] Address [address] [place] [address] Care Team Providers Care Wood Heel Flap Inserter Name Role Phone No Ref-Primary, Physician Primary [...] on file Legal Sex Female 11:57 AM BURSAR Gender Identity Not on file Sexual Orientation Not on file Last Filed Vital Signs Vital Sign Reading Time Taken Comments Blood Pressure 106/72 06/21/2019 2:58 PM BURSAR Pulse 74 06/21/2019 2:58 PM BURSAR Temperature 36.4 C (97.6 F) 06/21/2019 2:58 PM BURSAR Respiratory Rate 16 06/21/2019 2:58 PM BURSAR Oxygen Saturation 100% 06/21/2019 2:58 PM BURSAR Inhaled Oxygen Concentration - - Weight 90.9 kg (200 lb 6.4 oz) 06/21/2019 2:58 PM BURSAR Height 165.1 cm (5' 5) 06/21/2019 2:58 PM BURSAR Body Mass Index 33.35 06/21/2019 2:58 PM BURSAR Plan of Treatment Not on file Insurance [place] Care Teams Wood Heel Flap Inserter Relationship Specialty Start Date End Date No Ref-Primary, Physician PCP - General 03/30/19
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
--- OUTSIDE RECORDS SUMMARY | 2024-09-03 15:01 | XMS_ITS | Clinical Summary ---
Author Organization [facility] Address [address] [place] [address] Care Team Providers Care Logging Operations Inspector Name Role Phone No Ref-Primary, Physician Primary [...] on file Legal Sex Female 11:57 AM SHRIMP PICKER Gender Identity Not on file Sexual Orientation Not on file Last Filed Vital Signs Vital Sign Reading Time Taken Comments Blood Pressure 106/72 06/21/2019 2:58 PM SHRIMP PICKER Pulse 74 06/21/2019 2:58 PM SHRIMP PICKER Temperature 36.4 C (97.6 F) 06/21/2019 2:58 PM SHRIMP PICKER Respiratory Rate 16 06/21/2019 2:58 PM SHRIMP PICKER Oxygen Saturation 100% 06/21/2019 2:58 PM SHRIMP PICKER Inhaled Oxygen Concentration - - Weight 90.9 kg (200 lb 6.4 oz) 06/21/2019 2:58 PM SHRIMP PICKER Height 165.1 cm (5' 5) 06/21/2019 2:58 PM SHRIMP PICKER Body Mass Index 33.35 06/21/2019 2:58 PM SHRIMP PICKER Plan of Treatment Not on file Insurance [employer] [place] Care Teams Logging Operations Inspector Relationship Specialty Start Date End Date No Ref-Primary, Physician PCP - General 03/30/19
--- OUTSIDE RECORDS SUMMARY | 2024-09-03 15:01 | XMS_ITS | Clinical Summary ---
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 Methodology: Rhoda Lora 4800 HPV Test us Bianca Vázquez PROFESSOR OF LITERATURE MICROBIOLOGY Final Res ult [facility] [address] [place] [address], * ANTI HCV (02/24/2011 10:27 AM CDT) ANTI HCV Non-reacti ve [facility] Blood specimen (specimen) BLOOD SPECIMEN / Unknown 02/24/2011 10:27 AM CDT 02/24/2011 10:21 AM CDT us Hiral Harrison PA SEND OUTS Final Resu lt [facility] [place]NAL ZIP [address] [address] [place] [address] * ANTI HIV 1/2 (02/24/2011 10:27 AM CDT) ANTI HIV 1/2 Non-reacti ve [facility] Blood specimen (specimen) BLOOD SPECIMEN / Unknown 02/24/2011 10:27 AM CDT 02/24/2011 10:21 AM CDT us Hiral ALLEN SEND OUTS Final Resu lt [facility] INTERNAL ZIP [address] [address] from Last 3 Months or Most Recently Relevant to Health Maintenance Insurance [facility] [employer] Care Teams Solution Mixer Relationship Specialty Start Date End Date Pcp, No . PCP - General 06/07/13
[2024-09-03] MEDS: KETOROLAC 30 MG/ML inj IM (15:12)
== END 2024-09-03 15:28 | disposition home or self-care (01) ==
LOC: ED 14:59
PROVIDERS: Emergency Provider Emergency Medicine Emergency Medical Services; PCP Family Medicine
DX: M54.50 Low back pain, unspecified (principal)
CPT/HCPCS: 96372; 99284; J1885

== ENCOUNTER 2025-03-19 14:28 | Outpatient (CLI) | payer OTHER, SELFPAY | END 2025-03-19 14:29 | disposition home or self-care (01) | PROVIDERS: PCP Family Medicine; Visit Provider Physician Assistant | DX: R53.83 Other fatigue (principal) | CPT/HCPCS: 82306; 84443 ==